=== PATIENT | male | born 1990 | race African-American/Black ===

== ENCOUNTER 2016-12-03 03:17 | Emergency (ER) | payer MEDICAID ==
[~2016-12-03] VITALS: Ht 193 cm; Wt 94.5 kg
[2016-12-03 03:30] VITALS: Ht 193 cm; Wt 94.5 kg
--- NOTE | 2016-12-03 05:41 | ERD ---
ER Documentation Chief Complaint Date/Time DATE: 12/03/16 TIME: 05:36 Chief Complaint R arm numbness while driving s/s resolved at this time HPI This is a 26-year-old male presenting to the emergency department for history of right arm numbness and right-sided facial numbness. Patient states earlier tonight he was at a bar and drinking alcohol. Patient states he may have ingested alcohol with a muscle relaxant and within 10 minutes he developed right -sided facial paresthesia. Patient then left the bar and while driving developed right arm paresthesia. Patient states he came to the emergency room and symptoms resolved. Patient no longer having any numbness or tingling to extremities. Patient states the paresthesia on his face has improved however continues to have mild symptoms. Denies headache, loss of consciousness, nausea or vomiting. No head injury or trauma. No confusion or altered mental status. No neck or back pain. No abdominal pain, nausea, vomiting or diarrhea. ROS All systems reviewed and are negative except as per history of present illness. PMhx/Soc Medical and Surgical Hx: pt denies Medical Hx, pt denies Surgical Hx History of Surgery: No Anesthesia Reaction: No Hx Neurological Disorder: No Hx Respiratory Disorders: No Hx Cardiac Disorders: No Hx Psychiatric Problems: No Hx Miscellaneous Medical Probl: No Hx Alcohol Use: Yes (REG[employer]INK[employer]) Hx Substance Use: No Hx Tobacco Use: No Smoking Status: Never smoker Physical Exam Vitals Vital Signs Date Time Temp Pulse Resp B/P Pulse Ox O2 Delivery O2 Flow Rate FiO2 12/03/16 03:30 98.5 54 16 116/73 100 Physical Exam Const: No acute distress, alert Head: Atraumatic Eyes: Normal Conjunctiva ENT: Normal External Ears, Nose and Mouth. Neck: Full range of motion..~ No meningismus. Resp: Clear to auscultation bilaterally Cardio: Regular rate and rhythm, no murmurs Abd: Soft, non tender, non distended. Normal bowel sounds Skin: No petechiae or rashes Back: No midline or flank tenderness Ext: No cyanosis, or edema. Sensation fully intact. Neur: Awake and alert Psych: Normal Mood and Affect Procedures/MDM MDM: This is a 26-year-old male presenting to the emergency department for right arm paresthesia and right-sided facial paresthesia earlier today. Patient states symptoms started after drinking alcohol with possible muscle relaxant. Patient states while in the waiting room in the ER symptoms resolved. Patient no longer has numbness or tingling to extremities. No loss of sensation. Patient continues to have mild facial paresthesia. No facial droop, headache, loss of consciousness, nausea or vomiting. No visual changes. No blurry vision or loss of vision. Low suspicion for CVA, TIA or intracranial hemorrhage. Diagnosed is paresthesia. Patient is appropriate for outpatient management instructed patient to follow- up with primary care provider in the next 2-3 days for reassessment. Resources provided. Return to ED for any high fever, chest pain, difficulty breathing, shortness breath, wheezing, vomiting, diarrhea, abdominal pain or any new or worsening symptoms. Patient verbalizes understanding. All questions answered at discharge. Departure Diagnosis: Primary Impression: Right arm numbness Condition: Stable Patient Instructions: Paraesthesias Referrals: [facility] YOU HAVE RECEIVED A MEDICAL SCREENING EXAM AND THE RESULTS INDICATE THAT YOU DO NOT HAVE A CONDITION THAT REQUIRES URGENT TREATMENT IN THE EMERGENCY DEPARTMENT. FURTHER EVALUATION AND TREATMENT OF YOUR CONDITION CAN WAIT UNTIL YOU ARE SEEN IN YOUR DOCTORS OFFICE WITHIN THE NEXT 1-2 DAYS. IT IS YOUR RESPONSIBILITY TO MAKE AN APPOINTMENT FOR FOLOW-UP CARE. IF YOU HAVE A PRIMARY DOCTOR --you should call your primary doctor and schedule an appointment IF YOU DO NOT HAVE A PRIMARY DOCTOR YOU CAN CALL OUR PHYSICIAN REFERRAL HOTLINE AT IF YOU CAN NOT AFFORD TO SEE A PHYSICIAN YOU CAN CHOSE FROM THE FOLLOWING [facility] [address] [facility]. [facility] [address] [facility] [facility] [address] [facility]. [facility] [address] [facility]. [facility] [address] [facility]. [facility]. [address] [facility]. [facility] YOU HAVE RECEIVED A MEDICAL SCREENING EXAM AND THE RESULTS INDICATE THAT YOU DO NOT HAVE A CONDITION THAT REQUIRES URGENT TREATMENT IN THE EMERGENCY DEPARTMENT. FURTHER EVALUATION AND TREATMENT OF YOUR CONDITION CAN WAIT UNTIL YOU ARE SEEN IN YOUR DOCTORS OFFICE WITHIN THE NEXT 1-2 DAYS. IT IS YOUR RESPONSIBILITY TO MAKE AN APPOINTMENT FOR FOLOW-UP CARE. IF YOU HAVE A PRIMARY DOCTOR --you should call your primary doctor and schedule and appointment IF YOU DO NOT HAVE A PRIMARY DOCTOR YOU CAN CALL OUR PHYSICIAN REFERRAL HOTLINE AT . IF YOU CAN NOT AFFORD TO SEE A PHYSICIAN YOU CAN CHOSE FROM THE FOLLOWING [facility] INSTIT[facility]IONS: [facility] [id number] [place] [address] [facility] [address] [place] [address] [facility] [address] [place] [address] Additional Instructions: Call your primary care doctor TOMORROW for an appointment during the next 2-3 days.See the doctor sooner or return here if your condition worsens before your appointment time. Return to ED for any high fever, chest pain, difficulty breathing, shortness breath, wheezing, vomiting, diarrhea, abdominal pain or any new or worsening symptoms. SARAH MCCORMICK NP Dec 03, 2016 05:41
== END 2016-12-03 05:15 | disposition home or self-care (01) ==
LOC: FTE 03:17
DX: R20.0 Anesthesia of skin (principal)
CPT/HCPCS: 99282

== ENCOUNTER 2017-06-12 18:06 | Emergency (ER) | payer SELFPAY ==
[~2017-06-12] VITALS: Ht 193 cm; Wt 79.3 kg
[2017-06-12 18:09] VITALS: Ht 193 cm; Wt 79.3 kg
== END 2017-06-12 21:11 | disposition left against medical advice (07) ==
LOC: FTE 18:06
DX: Z53.21 Procedure and treatment not carried out due to patient leaving prior to being seen by health care provider (principal)